=== PATIENT | male | born 1950 | race Caucasian/White ===

== ENCOUNTER → 2017-12-19 | Emergency (ER) | payer OTHER ==
[~2017-12-19] VITALS: Ht 182.9 cm; Wt 122.5 kg
[~2017-12-19] MED LIST: COUMADIN 3 MG TA3 M1 PO; KEFLEX500 M1 PO; LISINOPRIL10 MG PO; SYMBICORT160 MCG/4. INH; TOPROL XL100 MG PO; WELLBUTRIN 100100 MG PO; ZOLOFT25 MG PO
[2017-12-19 16:37] VITALS: BP 128/63
== END ==
LOC: M.ERS 15:30
DX: S60.552A Superficial foreign body of left hand, initial encounter (principal); I48.91 Unspecified atrial fibrillation; J45.909 Unspecified asthma, uncomplicated; Z91.018 Allergy to other foods; X58.XXXA Exposure to other specified factors, initial encounter; Y93.89 Activity, other specified; Y92.89 Other specified places as the place of occurrence of the external cause; Y99.8 Other external cause status